=== PATIENT | female | born 1995 | race Caucasian/White ===

== ENCOUNTER → 2019-02-09 | Outpatient (CLI) | payer OTHER ==
[2019-02-09 13:42] LABS: BASO # 0.1 10^3/uL (0.0-0.2); BASO % 1.2 % (0.0-1.0); EOS # 0.6 10^3/uL (0.0-0.50); EOS % 9.4 % (0.0-3.0); HEMATOCRIT 41.5 % (36.0-47.0); HEMOGLOBIN 13.8 g/dl (12.0-15.5); LYMPH # 2.2 10^3/uL (1.5-6.5); LYMPH % 37.4 % (24.0-44.0); MEAN CORPUSCULAR HEMOGLOBIN 30.9 pg (27.0-33.0); MEAN CORPUSCULAR HGB CONC 33.3 g/dl (32.0-36.5); MONO # 0.4 10^3/uL (0.0-0.8); NEUTROPHILS # 2.6 10^3/uL (1.8-7.7); NEUTROPHILS % 44.7 % (36.0-66.0); PLATELET COUNT, AUTOMATED 222 10^3/uL (150-450); RED BLOOD COUNT 4.46 10^6/uL (4.00-5.40); WHITE BLOOD COUNT 5.8 10^3/uL (4.0-10.0)
[2019-02-09 14:20] LABS: ALBUMIN 3.6 GM/DL (3.2-5.2); ALT/SGPT 49 U/L (12-78); BILIRUBIN,TOTAL 0.3 MG/DL (0.2-1.0); BLOOD UREA NITROGEN 8 MG/DL (7-18); CALCIUM LEVEL 8.5 MG/DL (8.5-10.1); CARBON DIOXIDE LEVEL 26 MEQ/L (21-32); CHLORIDE LEVEL 108 MEQ/L (98-107); CREATININE FOR GFR 0.71 MG/DL (0.55-1.30); GLOMERULAR FILTRATION RATE > 60.0 (>60); GLUCOSE, FASTING 85 MG/DL (70-100); POTASSIUM SERUM 4.4 MEQ/L (3.5-5.1); SODIUM LEVEL 140 MEQ/L (136-145); TOTAL PROTEIN 7.2 GM/DL (6.4-8.2)
== END ==
LOC: M WUC 08:48
PROVIDERS: ATTEND Physician Assistant
DX: I65.9 Occlusion and stenosis of unspecified precerebral artery (principal)

== ENCOUNTER → 2019-04-04 | Outpatient (REF) | payer OTHER ==
[2019-04-07 15:47] LABS: HPV HYBRID CAPTURE II Positive (Negative)
== END ==
LOC: M LAB REF 13:27
PROVIDERS: ATTEND Obstetrics & Gynecology
DX: Z12.4 Encounter for screening for malignant neoplasm of cervix (principal)

== ENCOUNTER → 2019-06-07 | Outpatient (REF) | payer OTHER | LOC: M LAB REF 13:36 | PROVIDERS: ATTEND Obstetrics & Gynecology | DX: N87.0 Mild cervical dysplasia (principal) ==

== ENCOUNTER → 2020-07-19 | Outpatient (REF) | payer OTHER | LOC: M SFHCWAGY 13:34 | PROVIDERS: ATTEND Obstetrics & Gynecology | DX: Z12.4 Encounter for screening for malignant neoplasm of cervix (principal); N76.0 Acute vaginitis | CPT/HCPCS: 87624; G0123 ==

== ENCOUNTER → 2020-09-03 | Outpatient (CLI) | payer SELFPAY | LOC: M LABSMTC 12:49 | PROVIDERS: ATTEND Pediatrics | DX: Z20.822 Contact with and (suspected) exposure to COVID-19 (principal) ==

== ENCOUNTER → 2020-10-08 | Outpatient (REF) | payer OTHER ==
[2020-10-08 15:29] LABS: HEMATOCRIT 39.1 % (36.0-47.0); HEMOGLOBIN 13.2 g/dl (12.0-15.5); MEAN CORPUSCULAR HEMOGLOBIN 30.7 pg (27.0-33.0); MEAN CORPUSCULAR HGB CONC 33.8 g/dl (32.0-36.5); MEAN CORPUSCULAR VOLUME 90.9 fl (80.0-96.0); PLATELET COUNT, AUTOMATED 259 10^3/uL (150-450); WHITE BLOOD COUNT 7.5 10^3/uL (4.0-10.0)
[2020-10-08 16:17] LABS: HEPATITIS C VIRUS ABY INDEX 0.1 INDEX (<0.8); HIV 1&2 SCREEN CENTAUR NEGATIVE (NEGATIVE)
== END ==
LOC: M PLALAB 10:48
PROVIDERS: ATTEND Obstetrics & Gynecology
DX: Z34.01 Encounter for supervision of normal first pregnancy, first trimester (principal)

== ENCOUNTER → 2020-11-05 | Outpatient (REF) | payer OTHER | LOC: M SFHCWAGY 13:40 | PROVIDERS: ATTEND Obstetrics & Gynecology | DX: Z34.01 Encounter for supervision of normal first pregnancy, first trimester (principal) ==

== ENCOUNTER → 2020-12-05 | Outpatient (CLI) | payer OTHER | LOC: M WHC 14:11 | PROVIDERS: ATTEND Obstetrics & Gynecology | DX: Z34.92 Encounter for supervision of normal pregnancy, unspecified, second trimester (principal); Z3A.16 16 weeks gestation of pregnancy; Z53.9 Procedure and treatment not carried out, unspecified reason ==

== ENCOUNTER → 2020-12-25 | Outpatient (CLI) | payer OTHER ==
--- NOTE | 2020-12-25 09:36 | REP ---
INDICATION: ANATOMY. COMPARISON: None. TECHNIQUE: Real-time sonographic evaluation of the gravid uterus performed. FINDINGS: Estimated gestational age is19 weeks 4 days, EDC 05/17/2021. Today's measurements indicate appropriate growth. Presentation: Transverse Placenta anterior, grade 1, without evidence of placenta previa. heart rate is recorded at 156 beats per minute. Amniotic fluid is subjectively normal. Closed cervical length is measured at 4.1 cm. Biometry chart: BPD: 43 mm, 18 weeks 6 days, 32nd percentile. HC: 162 mm, 19 weeks 0 days, 33rd percentile AC: 138 mm, 19 weeks 1 days, 42nd percentile Femur length: 30 mm, 19 weeks 1 days, 40th percentile HC to AC ratio: 1.18, normal range 1.06-1.25. Estimated weight: 278g, 25th percentile. anatomy: Cranium: Grossly normal Lateral Ventricles/Choroid Plexus: Grossly normal Posterior Fossa/Cerebellum: Grossly normal Nose/lips/profile: Grossly normal Four chamber heart: Grossly normal Right ventricular outflow tract: Grossly normal Left ventricular outflow tract: Grossly normal Left-sided stomach: Grossly normal Kidneys: Grossly normal Bladder: Grossly normal Cord Insertion: Grossly normal 3 vessel cord: Grossly normal Spine: Not well seen due to position. IMPRESSION: Viable single intrauterine gestation as above. spine not well seen due to position. <Electronically signed by Robby New > 12/25/20 [id number]
== END ==
LOC: M WHC 07:21
PROVIDERS: ATTEND Obstetrics & Gynecology
DX: Z36.89 Encounter for other specified antenatal screening (principal); Z3A.16 16 weeks gestation of pregnancy

== ENCOUNTER → 2021-01-23 | Outpatient (CLI) | payer OTHER ==
--- NOTE | 2021-01-23 08:42 | REP ---
INDICATION: F/U ANATOMY COMPARISON: 12/25/2020 TECHNIQUE: Transabdominal obstetrical ultrasound with color Doppler evaluation. FINDINGS: Examination demonstrates a single live intrauterine in cephalic presentation. motion is identified by technologist. Placenta is noted anterior and grade 1 without evidence for placenta previa or abruption. Amniotic fluid volume is normal. Cervix measures 3.3 cm in length and appears closed.. Gestational age by LMP and 1st U/S 23 weeks 5 days with IRLANDA 05/17/2021. Gestational age by current measurements 23 weeks 4 days with IRLANDA 05/18/2021. FHR equals 146 beats per minute. Estimated weight 629 grams (42ndpercentile). Anatomical assessment demonstrates normal structures including normal evaluation of the spine. IMPRESSION: Single live intrauterine in cephalic presentation demonstrating appropriate estimated weight. In conjunction with prior examination anatomical assessment is complete and normal. <Electronically signed by Jose Torres > 01/23/21 [id number]
== END ==
LOC: M WHC 08:06
PROVIDERS: ATTEND Advanced Practice Midwife
DX: Z34.02 Encounter for supervision of normal first pregnancy, second trimester (principal)

== ENCOUNTER → 2021-02-03 | Outpatient (REF) | payer OTHER ==
[2021-02-03 13:46] LABS: HEMATOCRIT 32.2 % (36.0-47.0); HEMOGLOBIN 10.6 g/dl (12.0-15.5); MEAN CORPUSCULAR HEMOGLOBIN 30.9 pg (27.0-33.0); MEAN CORPUSCULAR HGB CONC 32.9 g/dl (32.0-36.5); MEAN CORPUSCULAR VOLUME 93.9 fl (80.0-96.0); PLATELET COUNT, AUTOMATED 210 10^3/uL (150-450); RED BLOOD COUNT 3.43 10^6/uL (4.00-5.40); WHITE BLOOD COUNT 6.7 10^3/uL (4.0-10.0)
== END ==
LOC: M PLALAB 08:47
PROVIDERS: ATTEND Advanced Practice Midwife
DX: Z34.02 Encounter for supervision of normal first pregnancy, second trimester (principal)

== ENCOUNTER → 2021-04-24 | Outpatient (REF) | payer OTHER | LOC: M SFHCWAGY 18:19 | PROVIDERS: ATTEND Advanced Practice Midwife | DX: Z36.89 Encounter for other specified antenatal screening (principal); Z3A.36 36 weeks gestation of pregnancy ==

== ENCOUNTER 2021-05-01 09:17 | Inpatient (IN) | payer OTHER ==
[~2021-05-01] VITALS: Ht 152.4 cm; Wt 72.6 kg
[2021-05-01] VITALS (17 sets, daily range): BP systolic 120–180; BP diastolic 67–98
[2021-05-01] MEDS ORDERED: STUACAP PO (10:20)
[2021-05-01] MEDS ORDERED: TUMS500C PO (10:21)
--- NOTE | 2021-05-01 11:00 | HPEPDOC ---
Obstetrical History & Physical General Date of Admission May 01, 2021 at 10:48 History of Present Illness 26 yo at 37 5/7 weeks by LMP c/w 8 week ultrasound (EDC=05/17/2021) presents with a loss of fluid per vagina starting at 6 am on the day of admission. Her contractions started shortly thereafter. They have increased in intensity. 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: No pertinent history Past Medical History Medical History none Surgical History: Denies/None Family History Significant Family History: No pertinent family hx Social History Marital Status: Family situation: Spouse/partner home Psychosocial History: No pertinent psych hx * Smoker: non-smoker Allergies Coded Allergies: No Known Allergies (Unverified , 05/01/21) Medications Scheduled Calcium Carbonate (Tums) 200 Mg Tab.chew, 2 TAB PO Q4H for cough and congestion Miscellaneous Medications Pnv No.63/Iron,Carb/Folic/Dha (Nicholas One Capsule) 1 Each Capsule, 1 CAP PO Physical Examination Physical Examination GENERAL: Alert and oriented times three. BREAST: . ABDOMEN: Gravid and non-tender to touch. FETUS: Is vertex (VTX) by sterile vaginal examination (SVE), fetus is vertex (VTX) by Nick. HEART RATE: Regular rate and rhythm. LUNGS: Clear to auscultation (CTA). EXTREMITIES: No edema. No clonus. Deep tendon reflexes (DTRs) + . Vital Signs/I&O Vital Signs Date Time Temp Pulse Resp B/P (MAP) Pulse Ox O2 Delivery O2 Flow Rate FiO2 05/01/21 10:15 96.9 77 18 137/93 (108) Room Air Pertinent Laboratoy Data Blood Type: O+ Steroid Therapy Steroid Therapy: No Vaginal Examination Dilation: 5 cm Effacement: 100% Station: -1 Cervical Consistency: Soft Cervical Position: Middle Presentation: Cephalic presentation Assessment Variability: Moderate Accelerations: Positive Decelerations: None Tocometer Contractions: Yes Frequency: regular Strength: palpated as moderate Assessment/Plan Assessment Pt is a 26 -year-old (G)1 para (P)0 at 37+5 weeks by LMPO c/w 8 week ultrasound presents to Labor and Delivery SROM, early labor Plan Admit and orient. 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 Diet: liquids. Group B Streptococcus (GBS) negative. Labs and intravenous (IV) per unit protocol. Counseled on Pitocin and augmentation Anticipate normal spontaneous delivery (). C-S as appropriate. EL BERGMAN MD May 01, 2021 11:00
[2021-05-01] MEDS ORDERED: OXYTOCIN DRIP 30 UNITS in IV 1 EA IV SCH (11:05)
[2021-05-01 11:19] LABS: HEMATOCRIT 37.7 % (36.0-47.0); MEAN CORPUSCULAR HEMOGLOBIN 30.5 pg (27.0-33.0); MEAN CORPUSCULAR HGB CONC 34.5 g/dl (32.0-36.5); MEAN CORPUSCULAR VOLUME 88.5 fl (80.0-96.0); PLATELET COUNT, AUTOMATED 254 10^3/uL (150-450); RED BLOOD COUNT 4.26 10^6/uL (4.00-5.40); WHITE BLOOD COUNT 12.4 10^3/uL (4.0-10.0)
[2021-05-01] MEDS: LR 1,000 ML IV SCH ×2 (12:46→17:43)
[2021-05-01 12:59] LABS: ALT/SGPT 20 U/L (12-78); BILIRUBIN,TOTAL 0.4 MG/DL (0.2-1.0); CREATININE FOR GFR 0.54 MG/DL (0.55-1.30); GLOMERULAR FILTRATION RATE > 60.0 (>60); LDH LACTATE DEHYDROGENASE 248 U/L (84-246); URIC ACID 3.3 MG/DL (2.6-6.0)
[2021-05-01] MEDS ORDERED: OXYTOCIN 30 UNITS IN 0.9% NaCl 500ML IV BAG (J2590) As Ordered ONE (17:23)
[2021-05-01] MEDS ORDERED: LIDOCAINE 1% MDV 20ML VIAL As Ordered ONE (18:26)
[2021-05-01] MEDS ORDERED: RHOGAM 300 MCG (1500 IU) INJ (J2790) IM SCH (19:00)
[2021-05-01] MEDS ORDERED: METHYLERGONOVINE MALEATE 0.2 MG TAB PO PRN (19:00)
[2021-05-01] MEDS ORDERED: IBUPROFEN 600MG TAB PO PRN (19:00)
[2021-05-01] MEDS ORDERED: ACETAMINOPHEN TAB 650MG DOSE (2X325MG) PO PRN (19:00)
[2021-05-01] MEDS ORDERED: OXYTOCIN DRIP 30 UNITS in IV 1 EA IV ONE (19:00)
[2021-05-01] MEDS ORDERED: DOCUSATE SODIUM 100MG CAPSULE PO PRN (19:00)
[2021-05-01] MEDS ORDERED: MEASLES,MUMPS,RUBELLA VACCINE INJ (MMR-II) (90707) SC SCH (19:00)
[2021-05-01] MEDS ORDERED: ONDANSETRON 4MG/2ML VIAL IV PRN (19:00)
[2021-05-01] MEDS ORDERED: LIDOCAINE 1% MDV 20ML VIAL INFIL ONE (19:00)
[2021-05-01] MEDS ORDERED: ACETAMINOPHEN 500 MG TAB PO PRN (19:00)
--- NOTE | 2021-05-01 19:04 | DNPDOC ---
[facility] Delivery Note Delivery Note DATE OF DELIVERY: May 01, 2021 PREDELIVERY DIAGNOSIS: 37-5/7 weeks' gestation and labor, SROM. POST DELIVERY DIAGNOSIS: Delivered. PROCEDURE: Spontaneous vaginal delivery. HEMATOLOGY TECHNOLOGIST: Dr. El Bergman MD ANESTHESIA: none. ESTIMATED BLOOD LOSS: 400 mL. FINDINGS: 7 pound 1 ounce (3190 g) female infant, Score 8/9. DELIVERY SUMMARY: Patient is a 26-year-old 1 now para 1who was admitted to labor and delivery for labor and spontaneous rupture of membranes. She received Pitocin augmentation. After a 40 minute second stage of labor she had a spontaneous vaginal delivery of a lb. oz female . no nuchal cord Shoulders delivered with ease. Placenta delivered spontaneously and appeared intact. IV Pitocin administered immediately after delivery of the placenta. A stellate second degree perineal laceration was repaired under local anesthesia in the usual fashion. Sponge and needle counts correct. EL BERGMAN MD May 01, 2021 19:04
[2021-05-02 05:58] VITALS: BP 109/58
[2021-05-02] MEDS: IBUPROFEN 800 MG TAB PO PRN ×2 (06:29→17:14)
--- NOTE | 2021-05-02 08:39 | IPNPDOC ---
Text Note Date of Service The patient was seen on 05/02/21. NOTE PP #1 Feels well. Adequate pain management. Voiding VSS, afebrile, normotensive Breasts soft, nipples intact Fundus firm, NT, down 1 FB Lochia rubra light without odor Perineum well approximated PP #1 Routine care. Anticipate D/C in am VS,Fishbone, I+O VS, Fishbone, I+O Laboratory Tests 05/01/21 11:04 Vital Signs Date Time Temp Pulse Resp B/P (MAP) Pulse Ox O2 Delivery O2 Flow Rate FiO2 05/02/21 05:58 99.0 83 16 109/58 (75) 05/01/21 16:14 98 Room Air I&O- Last 24 Hours up to 6 AM 05/02/21 05:59 Intake Total 3110 ml Output Total 600 ml Balance 2510 ml Kelsie Bella CNM May 02, 2021 08:39
[2021-05-02] MEDS: PRENATAL VITAMINS CHEWABLE TABLET PO SCH (10:10)
[2021-05-02 17:59] VITALS: BP 118/79
[2021-05-03 06:00] VITALS: BP 105/58
[2021-05-03] MEDS: PRENATAL VITAMINS CHEWABLE TABLET PO SCH (08:24)
--- NOTE | 2021-05-03 10:04 | IPNPDOC ---
Progress Note Date of Service: May 03, 2021 Day#: 1 Progress Note SUBJECT: Status post . She has been ambulating, voiding spontaneously witho ut issue and tolerating regular diet. Lochia decreasing/minimal. Pain is well- controlled. Denies headache, visual changes, right upper quadrant pain, shortness breath or chest pain. OBJECTIVE: VITAL SIGNS: Within normal limits, afebrile. Alert and oriented times three. Abdomen: Fundus firm at U-2. Soft, NTTP. ASSESSMENT: Status post uncomplicated spontaneous vaginal delivery. Vitals within normal limits, afebrile, hemodynamically stable with no evidence of infection. PLAN: Discharge to home today. Tylenol and Motrin for pain. Routine instructions/precautions reviewed. Routine PP visit in 6 weeks in clinic. VS, I&O, 24H, Fishbone Vital Signs/I&O Vital Signs Date Time Temp Pulse Resp B/P (MAP) Pulse Ox O2 Delivery O2 Flow Rate FiO2 05/03/21 06:00 98.0 86 18 105/58 (74) 99 Room Air ADDIE TRINH DO May 03, 2021 10:04
[2021-05-03 17:50] VITALS: BP 112/56
[2021-05-03] MEDS ORDERED: DIBUCAINE 1% OINTMENT 30GM TOP PRN ×2 (21:35→21:50)
[2021-05-04 06:00] VITALS: BP 104/53
[2021-05-04] MEDS: PRENATAL VITAMINS CHEWABLE TABLET PO SCH (09:00)
--- NOTE | 2021-05-04 11:55 | IPNPDOC ---
Progress Note Date of Service: May 04, 2021 Progress Note SUBJECT: Status post . She has been ambulating, voiding spontaneously without issue and tolerating regular diet. Lochia decreasing/minimal. Pain is well-controlled. Denies headache, visual changes, right upper quadrant pain, shortness breath or chest pain. OBJECTIVE: VITAL SIGNS: Within normal limits, afebrile. Alert and oriented times three. Abdomen: Fundus firm at U-2. Soft, NTTP. ASSESSMENT: Status post uncomplicated spontaneous vaginal delivery. Vitals within normal limits, afebrile, hemodynamically stable with no evidence of infection. PLAN: Discharge to home today. Tylenol and Motrin for pain. Routine instructions/precautions reviewed. Routine PP visit in 6 weeks in clinic. VS, I&O, 24H, Fishbone Vital Signs/I&O Vital Signs Date Time Temp Pulse Resp B/P (MAP) Pulse Ox O2 Delivery O2 Flow Rate FiO2 05/04/21 06:00 98.2 72 16 104/53 (70) 99 Room Air ADDIE TRINH DO May 04, 2021 11:55
== END 2021-05-04 11:45 | disposition home or self-care (01) | DRG 807 ==
LOC: M LDO 09:17 → M LDI 10:48 → M OBS 20:39
PROVIDERS: ADMIT Specialist; ATTEND Specialist
PROC: 10E0XZZ Delivery of Products of Conception, External Approach (ICD-10-PCS; principal; 2021-05-01)
PROC: 0KQM0ZZ Repair Perineum Muscle, Open Approach (ICD-10-PCS; 2021-05-01)
DX: O70.1 Second degree perineal laceration during delivery (principal); Z37.0 Single live birth; Z3A.37 37 weeks gestation of pregnancy

== ENCOUNTER → 2021-09-17 | Outpatient (REF) | payer OTHER ==
[~2021-09-17] MED LIST: STUACAP PO; TUMS500C PO
== END ==
LOC: M SFHCWAGY 17:16
PROVIDERS: ATTEND Obstetrics & Gynecology
DX: Z01.419 Encounter for gynecological examination (general) (routine) without abnormal findings (principal); Z12.4 Encounter for screening for malignant neoplasm of cervix
CPT/HCPCS: 87624; G0123; G0463